=== PATIENT | female | born 1955 | race African-American/Black ===

== ENCOUNTER 2018-02-24 06:32 | Emergency (ER) | payer SELFPAY ==
[~2018-02-24] VITALS: Ht 154.9 cm; Wt 99.3 kg
[~2018-02-24 06:32] MED LIST: ALBUAER3 IN; CYCL7.5T15 PO; DIPH-506 OR; DOCU-94 PO; HYDR-4072 PO; LISI-646 PO; LOSA100T27 PO; METF-489 PO; OMEP20TA44 PO; TRAZ-181 PO
[2018-02-24 06:51] VITALS: BP 131/75
[2018-02-24] MEDS ORDERED: KETOROLAC TROMETH 60MG/2ML VIAL IM ONE (07:45)
== END 2018-02-24 08:05 | disposition home or self-care (01) ==
LOC: ER 06:32
DX: S39.012A Strain of muscle, fascia and tendon of lower back, initial encounter (principal); R51 Headache; J45.909 Unspecified asthma, uncomplicated; E11.9 Type 2 diabetes mellitus without complications; I10 Essential (primary) hypertension; V43.62XA Car passenger injured in collision with other type car in traffic accident, initial encounter; Y93.89 Activity, other specified; Y92.488 Other paved roadways as the place of occurrence of the external cause; Y99.8 Other external cause status
CPT/HCPCS: 70450; 72131; 96372; 99284; J1885

== ENCOUNTER 2018-08-09 07:31 | Emergency (ER) | payer OTHER ==
[~2018-08-09] VITALS: Ht 154.9 cm; Wt 99.8 kg
[~2018-08-09 07:31] MED LIST changes: +LOSA-49 PO; -LOSA100T27 PO
[2018-08-09 08:14] VITALS: BP 122/84
== END 2018-08-09 09:17 | disposition home or self-care (01) ==
LOC: ER 07:31
DX: M75.92 Shoulder lesion, unspecified, left shoulder (principal); J45.909 Unspecified asthma, uncomplicated; E11.9 Type 2 diabetes mellitus without complications; I10 Essential (primary) hypertension; G89.29 Other chronic pain; M54.5 Low back pain; Z79.891 Long term (current) use of opiate analgesic; Z79.899 Other long term (current) drug therapy
CPT/HCPCS: 73030

== ENCOUNTER 2018-12-11 05:55 | Emergency (ER) | payer OTHER ==
[~2018-12-11] VITALS: Ht 154.9 cm; Wt 101.2 kg
[2018-12-11 07:35] LABS: Basophils # (auto) 0.1 uL; Basophils % (auto) 0.8 % (0.0-2.0); Eosinophils # (auto) 0.2 uL; Eosinophils % (auto) 1.9 % (0.0-7.0); Hematocrit 39.6 % (36.0-46.0); Hemoglobin 12.7 g/dL (12.2-16.2); Lymphocytes # (auto) 2.1 uL; Mean Corpuscular Hemoglobin 28.2 pg (28.0-32.0); Monocytes # (auto) 0.8 uL; Neutrophils # (auto) 7.2 uL; Neutrophils % (auto) 69.3 % (37.0-80.0); Platelet Count (auto) 189 10^3/uL (140-450); Red Cell Distribution Width 16.3 % (11.8-14.3); White Blood Cell 10.4 10^3/uL (4.4-10.8)
[2018-12-11 08:02] LABS: Albumin 3.2 g/dL (3.4-5.0); Anion Gap 7 (5-15); Aspartate Aminotransferase 17 U/L (15-37); BUN/Creatinine Ratio 15.4; Blood Urea Nitrogen 10 mg/dL (7-18); Calcium 7.9 mg/dL (8.5-10.1); Carbon Dioxide 27 mmol/L (21-32); Chloride 109 mmol/L (98-107); GFR African American 118 mL/min; GFR Non-African American 97 mL/min; Glucose 104 mg/dL (74-106); Potassium 3.6 mmol/L (3.5-5.1); Sodium 143 mmol/L (136-145)
[2018-12-11 08:07] LABS: Alanine Aminotransferase 24 U/L (13-56); Alkaline Phosphatase 88 U/L (45-117); Bilirubin, Total 0.1 mg/dL (0.2-1.0)
[2018-12-11] MEDS ORDERED: HYDROcodone-ACET 5/325MG TAB PO ONE (09:15)
[2018-12-11] MEDS ORDERED: ACETAMINOPHEN 325 MG TAB PO ONE (09:30)
[2018-12-11 09:48] LABS: Urine Bacteria NONE SEEN /hpf (None Seen); Urine Blood Negative /uL (Negative); Urine Mucus FEW (None Seen); Urine Specific Gravity 1.029 (1.001-1.035); Urine WBC <1 /hpf (0 - 5)
[2018-12-11 11:00] VITALS: BP 138/80
== END 2018-12-11 11:08 | disposition home or self-care (01) ==
LOC: ER 05:55
DX: M50.323 Other cervical disc degeneration at C6-C7 level (principal); I10 Essential (primary) hypertension; M79.602 Pain in left arm
CPT/HCPCS: 36415; 72040; 73030; 80053; 81001; 84484; 85025; 93005

== ENCOUNTER 2019-05-08 13:14 | Emergency (ER) | payer OTHER ==
[~2019-05-08] VITALS: Ht 154.9 cm; Wt 96.2 kg
[~2019-05-08 13:14] MED LIST changes: +LOSA-39 PO; -LOSA-49 PO
[2019-05-08 15:00] VITALS: BP 131/77
[2019-05-08] MEDS ORDERED: HYDROcodone-ACET 5/325MG TAB PO ONE (15:00)
== END 2019-05-08 15:43 | disposition home or self-care (01) ==
LOC: EDBD 13:14 → ER 13:16
DX: S40.012A Contusion of left shoulder, initial encounter (principal); S70.02XA Contusion of left hip, initial encounter; J44.9 Chronic obstructive pulmonary disease, unspecified; E11.9 Type 2 diabetes mellitus without complications; K21.9 Gastro-esophageal reflux disease without esophagitis; Z79.899 Other long term (current) drug therapy; W18.09XA Striking against other object with subsequent fall, initial encounter; Y93.89 Activity, other specified; Y92.59 Other trade areas as the place of occurrence of the external cause; Y99.8 Other external cause status
CPT/HCPCS: 73030; 73502

== ENCOUNTER 2019-07-20 08:32 | Emergency (ER) | payer OTHER ==
[~2019-07-20] VITALS: Ht 154.9 cm; Wt 94.8 kg
[2019-07-20 08:40] VITALS: BP 164/90
[2019-07-20] MEDS ORDERED: ALBUTEROL SULF 2.5 MG/0.5ML(0.5%) NEB SOLN NEB ONE (09:30)
[2019-07-20] MEDS ORDERED: IPRATROPIUM BROM 0.5 MG/2.5ML INH SOL NEB ONE (09:30)
== END 2019-07-20 10:24 | disposition home or self-care (01) ==
LOC: ER 08:32
DX: J45.909 Unspecified asthma, uncomplicated (principal); E11.9 Type 2 diabetes mellitus without complications; K21.9 Gastro-esophageal reflux disease without esophagitis; I10 Essential (primary) hypertension
CPT/HCPCS: 71046; 94640; 99283; J7611; J7644

== ENCOUNTER 2022-12-28 07:36 | Emergency (ER) | payer OTHER ==
[~2022-12-28] VITALS: Ht 152.4 cm; Wt 93.3 kg
[~2022-12-28 07:36] MED LIST changes: +CYCL-838 PO; -CYCL7.5T15 PO; -DIPH-506 OR; +DIPH-562 OR; -LISI-646 PO; +LISI20TA56 PO; -LOSA-39 PO; +LOSA100T58 PO
[2022-12-28] MEDS ORDERED: GABAPENTIN 300 MG CAP PO ONE (08:15)
[2022-12-28 08:41] VITALS: BP 138/62
[2022-12-28] MEDS ORDERED: PERCOT PO (09:54)
== END 2022-12-28 10:05 | disposition home or self-care (01) ==
LOC: ER 07:36
DX: M12.811 Other specific arthropathies, not elsewhere classified, right shoulder (principal); M25.511 Pain in right shoulder; J44.9 Chronic obstructive pulmonary disease, unspecified; I10 Essential (primary) hypertension; E11.9 Type 2 diabetes mellitus without complications; K21.9 Gastro-esophageal reflux disease without esophagitis; E66.01 Morbid (severe) obesity due to excess calories; Z79.4 Long term (current) use of insulin; Z79.1 Long term (current) use of non-steroidal anti-inflammatories (NSAID); Z79.899 Other long term (current) drug therapy; Z68.41 Body mass index [BMI] 40.0-44.9, adult
CPT/HCPCS: 72040

== ENCOUNTER 2023-02-24 15:35 | Emergency (ER) | payer OTHER ==
[~2023-02-24] VITALS: Ht 180.3 cm; Wt 111.0 kg
[~2023-02-24 15:35] MED LIST changes: +PERCOT PO
[2023-02-24] MEDS ORDERED: EPINEPHrine HCL 1 MG/1 ML AMP IM ONE (16:15)
[2023-02-24] MEDS ORDERED: SODIUM CHLORIDE 0.9% 500 ML IV ONE (16:15)
[2023-02-24] MEDS ORDERED: FAMOTIDINE (10MG/ML) 2ML VL IV ONE (16:15)
[2023-02-24] MEDS ORDERED: DIPH25CA66 PO (17:18)
[2023-02-24] MEDS ORDERED: FAMO20TA10 PO (17:18)
[2023-02-24 17:30] VITALS: BP 138/67; PULSE 81; RESP 19; TEMP 98.4; O2SAT 95
== END 2023-02-24 17:37 | disposition home or self-care (01) ==
LOC: ER 15:35
DX: T78.40XA Allergy, unspecified, initial encounter (principal); J44.9 Chronic obstructive pulmonary disease, unspecified; I10 Essential (primary) hypertension; E11.9 Type 2 diabetes mellitus without complications; K21.9 Gastro-esophageal reflux disease without esophagitis; Z79.899 Other long term (current) drug therapy; Y92.89 Other specified places as the place of occurrence of the external cause
CPT/HCPCS: 96361; 96372; 96374; 99284; J0171; J3490; J7040

== ENCOUNTER 2023-05-20 13:08 | Emergency (ER) | payer OTHER ==
[~2023-05-20] VITALS: Ht 154.9 cm; Wt 88.1 kg
[~2023-05-20 13:08] MED LIST changes: +DIPH25CA66 PO; +FAMO20TA10 PO
[2023-05-20] MEDS ORDERED: diphenhdrAMINE HCL 12.5 MG/5 ML UD PO ONE (13:30)
[2023-05-20] MEDS ORDERED: FAMOTIDINE 20 MG TAB PO ONE (15:00)
[2023-05-20] MEDS ORDERED: diphenhdrAMINE HCL 50 MG/1 ML VL IM ONE (15:00)
[2023-05-20] MEDS ORDERED: DexAMETHasone SOD PHOS 10MG/1ML VIAL INJ IM ONE (15:00)
[2023-05-20 15:11] VITALS: PULSE 76; RESP 16; O2SAT 95
[2023-05-20 15:16] VITALS: BP 109/73; PULSE 76; RESP 16; TEMP 98.1; O2SAT 95
[2023-05-20] MEDS ORDERED: PRED20TA2 PO (17:52)
[2023-05-20] MEDS ORDERED: DIPH25CA66 PO (17:52)
[2023-05-20] MEDS ORDERED: FAMO20TA10 GT (17:52)
== END 2023-05-20 17:47 | disposition home or self-care (01) ==
LOC: ER 13:08
DX: T78.40XA Allergy, unspecified, initial encounter (principal); I10 Essential (primary) hypertension; J45.909 Unspecified asthma, uncomplicated; E78.5 Hyperlipidemia, unspecified; Z79.899 Other long term (current) drug therapy; Y92.89 Other specified places as the place of occurrence of the external cause
CPT/HCPCS: 82962; 96372; 99284; J1100; J1200

== ENCOUNTER 2023-07-29 10:32 | Emergency (ER) | payer OTHER ==
[~2023-07-29] VITALS: Ht 154.9 cm; Wt 89.0 kg
[~2023-07-29 10:32] MED LIST changes: +FAMO20TA10 GT; +PRED20TA2 PO
[2023-07-29 11:48] LABS: Basophils # (auto) 0.1 10 ^3/uL (0-0.2); Basophils % (auto) 0.5 % (0.0-2.0); Eosinophils # (auto) 0.1 10 ^3/uL (0-0.8); Eosinophils % (auto) 1.4 % (0.0-7.0); Hematocrit 46.3 % (36.0-46.0); Hemoglobin 15.1 g/dL (12.2-16.2); Lymphocytes # (auto) 2.6 10 ^3/uL (0.4-5.4); Lymphocytes % (auto) 25.7 % (10.0-50.0); Mean Corpuscular Hemoglobin 28.5 pg (28.0-32.0); Mean Corpuscular Hgb Conc. 32.7 g/dL (32.0-36.0); Mean Corpuscular Volume 87.3 fL (80.0-100.0); Monocytes # (auto) 0.8 10 ^3/uL (0-1.3); Monocytes % (auto) 7.9 % (0.0-12.0); Neutrophils # (auto) 6.4 10 ^3/uL (1.6-8.6); Neutrophils % (auto) 64.5 % (37.0-80.0); Nucleated Red Blood Cells % 0.1 %; Red Blood Cells 5.31 10^6/uL (4.0-5.20); Red Cell Distribution Width 15.7 % (11.8-14.3)
[2023-07-29 12:03] LABS: INR 0.98 (0.9-1.15); Partial Thromboplastin Time 29.3 SEC (24.5-34.5); Prothrombin Time 10.3 sec (9.3-11.8)
[2023-07-29 12:06] LABS: Alanine Aminotransferase 37 U/L (7-40); Albumin 4.8 g/dL (3.2-4.8); Alkaline Phosphatase 99 U/L (46-116); Anion Gap 6 (5-15); Aspartate Aminotransferase 23 U/L (13-40); BUN/Creatinine Ratio 13.6 (10.0-20.0); Blood Urea Nitrogen 11 mg/dL (9-23); Carbon Dioxide 31 mmol/L (20-30); Chloride 103 mmol/L (98-107); Glucose 104 mg/dL (74-106); Potassium 3.7 mmol/L (3.5-5.1); Sodium 140 mmol/L (136-145)
[2023-07-29 12:07] LABS: Bilirubin, Total 0.4 mg/dL (0.2-1.0); Total Protein 7.5 g/dL (5.7-8.2)
[2023-07-29 13:12] VITALS: BP 134/91; PULSE 85; RESP 18; TEMP 98.1; O2SAT 96
== END 2023-07-29 13:14 | disposition home or self-care (01) ==
LOC: ER 10:32
DX: R55 Syncope and collapse (principal); R42 Dizziness and giddiness; J44.9 Chronic obstructive pulmonary disease, unspecified; E11.9 Type 2 diabetes mellitus without complications; K21.9 Gastro-esophageal reflux disease without esophagitis; I10 Essential (primary) hypertension
CPT/HCPCS: 36415; 70450; 70486; 71045; 80053; 83880; 84484; 85025; 85610; 85730; 93005

== ENCOUNTER 2024-09-20 17:11 | Emergency (ER) | payer OTHER, MEDICAID ==
[~2024-09-20] VITALS: Ht 154.9 cm; Wt 90.1 kg
[~2024-09-20 17:11] MED LIST changes: +CETI10TA2 PO; -CYCL-838 PO; +CYCL-839 PO; +DICL500C76 TOP; -DIPH-562 OR; -DIPH25CA66 PO; +EMPA1TAB PO; -FAMO20TA10 GT; +FLUT1AER3 IN; +FURO20TA3 PO; -LISI20TA56 PO; +LORA-622 PO; +LORA10CA12 PO; -LOSA100T58 PO; -METF-489 PO; +MONT-8 OR; -OMEP20TA44 PO; +POTA-36 PO; -PRED20TA2 PO; +ROSU10TA16 PO; +SACU1TAB PO; +SEMA2INJ3 SC; +TIZA4CAP PO
[2024-09-20 17:23] VITALS: BP 155/83; PULSE 79; RESP 16; TEMP 97.8; O2SAT 100
--- NOTE | 2024-09-20 19:51 | DVH ---
EXAM: XR Left Knee, 3 Views CLINICAL INDICATION: injury/pain TECHNIQUE: Three views of the left knee. COMPARISON: None FINDINGS: BONES/JOINTS: Unremarkable. No acute fracture. No dislocation. SOFT TISSUES: Unremarkable. OTHER FINDINGS: . None. IMPRESSION: No acute fracture.
[2024-09-20] MEDS: KETOROLAC TROMETH 60MG/2ML VIAL IM ONE (19:54)
[2024-09-20] MEDS: HYDROcodone-ACET 5/325MG TAB PO ONE (19:54)
--- NOTE | 2024-09-20 20:17 | ED.PDOC ---
Back pain HPI HPI Comments 69-YEAR-OLD FEMALE PRESENTS TO THE ED CHIEF COMPLAINT LEFT LOWER LEG PAIN. PATIENT STATES SHE TWISTED HER LEFT LEG AT THE KNEE, SINCE HAS POSTERIOR KNEE PAIN SWELLING. 8/10 ON PAIN SCALE THROBBING IN NATURE NONRADIATING HAS NOT TRIED ANY [id number] RELIEF MEASURES CURRENTLY IN A WHEELCHAIR STATES INCREASED PAIN WITH WEIGHT-BEARING. DENIES ANY OTHER KNOWN INJURY NUMBNESS OR WEAKNESS. Chief Complaint: Lower Extremity Time Seen by MD: 18:28 Primary Care Provider: Madelin Barkley Notes: Nurses Notes, Medications, Allergies Allergies: Coded Allergies: NO KNOWN ALLERGIES (Unverified , 12/11/18) Home Meds Active Scripts Famotidine (PEPCID TABLET) 20 Mg Tb, 1 TAB PO BID for 10 Days, #20 TAB 5 Refills Prov:CRISTAL MORA ENVIRONMENTAL SOLUTIONS ENGINEER 02/24/23 Oxycodone W/ Acetaminophen (Percocet 5/325MG) 1 Tab Tb, 1 TAB PO TID, #20 TAB Prov:KIKI GUALLPA PAC 12/28/22 Reported Medications Potassium Chloride (POTASSIUM CHLORIDE CR) 10 Meq Tb, 20 MEQ PO BID, TAB 11/19/23 Furosemide (Furosemide) 20 Mg Tab, 20 MG PO BIDD for 30 Days, MG 11/19/23 Sacubitril-Valsartan (Entresto 24-26 mg) 1 Tab Tab, 1 TAB PO, TAB 11/19/23 Dicloxacillin Sodium (Dicloxacillin Sodium) 500 Mg Cap, 1 GEL TOP, #28 CAP 11/19/23 Cyclobenzaprine Hcl (Cyclobenzaprine Hcl) 10 Mg Tab, 10 MG PO Q8HR for 30 Days, MG 11/19/23 Loratadine (Claritin) 10 Mg Tab, 10 MG PO, TAB 11/19/23 Trazodone HCl (Trazodone Hydrochloride) 50 Mg Tab, 50 MG PO, TAB 11/19/23 Rosuvastatin Calcium (Crestor) 10 Mg Tab, 10 MG PO, TAB 11/19/23 Semaglutide (Ozempic) 2 Mg/3 Ml Inj, 0.5 MG SC, INJ 11/19/23 Empagliflozin (Jardiance) 10 Mg Tab, 10 MG PO, TAB 11/19/23 Pjzfmhkeolt-Atbsmprcbbid-Gjety (Trelegy Ellipta 100-62.5-25 Mcg/INH) 1 Aer Aer, 1 AER IN, AER 11/19/23 Loratadine (Loratadine) 10 Mg Cap, 10 MG PO, CAP 11/19/23 Montelukast Sodium (MONTELUKAST SODIUM) 10 Mg Tab, 10 MG OR, TAB 11/19/23 Cetirizine Hcl (Kls Aller-Robyn) 10 Mg Tab, 10 MG PO, TAB 11/19/23 Tizanidine Hydrochloride (Zanaflex) 4 Mg Cap, 2 MG PO, CAP 11/19/23 Albuterol Sulfate (VENTOLIN MDI) 90 Mcg Ih, 90 MCG IN 11/01/17 Docusate Sodium (Colace) 100 Mg Cap, 100 MG PO, CAP 11/01/17 Hydrocodone-Acetaminophen (Hydrocodone/Acetaminophen 10-325 mg) 1 Tab Tab, 1 TAB PO, TAB 11/01/17 Mode of Arrival: Ambulatory Past Medical History PAST MEDICAL HISTORY: Asthma, COPD, DM, GERD, HTN Surgical History: Hysterectomy, Tonsillectomy 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 History: Denies all 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 Hx Family History Family History: No family hx of DM, No family hx of Heart zurdo, No family hx of HTN Social History Smoker: Non-Smoker Alcohol: Denies ETOH Use Drugs: Denies Drug Use Lives In: Home Constitutional: denies: chills, diaphoresis, fatigue, fever, malaise, sweats, weakness, others EENTM: denies: blurred vision, double vision, ear bleeding, ear discharge, ear drainage, ear pain, ear ringing, eye pain, eye redness, hearing loss, mouth pain, mouth swelling, nasal discharge, nose bleeding, nose congestion, nose pain, photophobia, tearing, throat pain, throat swelling, voice changes, others Respiratory: denies: cough, hemoptysis, orthopnea, SOB at rest, shortness of breath, SOB with excertion, stridor, wheezing, others Cardiovascular: denies: chest pain, dizzy spells, diaphoresis, Dyspnea on exertion, edema, irregular heart beat, left arm pain, lightheadedness, palpitations, PND, syncope, others Gastrointestinal: denies: abdomen distended, abdominal pain, blood streaked bowels, constipated, diarrhea, dysphagia, difficulty swallowing, hematemesis, melena, nausea, poor appetite, poor fluid intake, rectal bleeding, rectal pain, vomiting, others Genitourinary: denies: abnormal vagina bleeding, burning, dyspareunia, dysuria, flank pain, frequency, hematuria, incontinence, pain, , vagina discharge, urgency, others Neurological: denies: dizziness, fainting, headache, left sided numbness, left sided weakness, numbness, paresthesia, pre-existing deficit, right sided numbness, right sided weakness, seizure, speech problems, tingling, tremors, weakness, others Musculoskeletal: reports: others (LEFT KNEE PAIN/INJURY); denies: back pain, gout, joint pain, joint swelling, muscle pain, muscle stiffness, neck pain Integumetry: denies: bruises, change in color, change in hair/nails, dryness, laceration, lesions, lumps, rash, wounds, others Allergic/Immunocompromised: denies: Difficulty Healing, Frequent Infections, Hives, Itching, others Hematologic/Lymphatic: denies: anemia, blood clots, easy bleeding, easy bruising, swollen glands, others Endocrine: denies: excessive hunger, excessive sweating, excessive thirst, excessive urination, flushing, intolerance to cold, intolerance to heat, unexplained weight gain, unexplained weight loss, others Psychiatric: denies: anxiety, bipolar disorder, depression, hopeless, panic disorder, schizophrenia, sleepless, suicidal, others Physical Exam General Appearance: No Apparent Distress, Normal HEENT: Normal ENT Inspection, Pharynx Normal, TMs Normal Neck: Full Range of Motion, Non-Tender Respiratory: Chest Non-Tender, Lungs Clear, No Accessory Muscle Use, No Respiratory Distress, Normal Breath Sounds Cardiovascular: No Edema, No JVD, No Murmur, No Gallop, Normal Peripheral Pulses, Regular Rate/Rhythm Breast Exam: Deferred Gastrointestinal: No Organomegaly, Non Tender, No Pulsatile Mass, Normal Bowel Sounds, Soft Genitalia: Deferred Pelvic: Deferred Rectal: Deferred Extremities: Normal capillary refill, Normal inspection, Normal range of motion , Non-tender, No pedal edema Musculoskeletal : Location: Left Extremity Location: Knee (NEGATIVE CHRISSY AND DRAWER TEST. TENDERNESS PALPATED POSTERIOR KNEE WITH TRACE SWELLING. POSITIVE POPLITEAL PULSE STRENGTH SENSORY MOTION INTACT) Apperance: Normal Neurologic: Alert, wire stitcher operator II-XII nml as Tested, No Motor Deficits, Normal Affect, Normal Mood, No Sensory Deficits Cerebellar Function: Normal Reflexes: Normal Skin: Dry, Normal Color, Warm Lymphatic: No Adenopathy Was a procedure done? Was a procedure done?: No Back Pain Differential Dx Differential Diagnosis: Fracture, Musculoskeletal Pain X-Ray, Labs, Meds, VS Vital Signs Date Time Temp Pulse Resp B/P (MAP) Pulse Ox O2 Delivery O2 Flow Rate FiO2 09/20/24 17:23 97.8 79 16 155/83 (107) 100 97.8 09/20/24 17:23 97.8 79 16 155/83 (107) 100 97.8 Current Medications Medications (Trade) Dose Ordered Sig/Dominique Route Start Time Stop Time Status Last Admin Acetaminophen/ Hydrocodone Bitart ([place] 5/325MG Tab) 1 tab ONCE ONCE PO 09/20/24 19:15 09/20/24 19:16 DC 09/20/24 19:54 Ketorolac Tromethamine (Toradol Injection) 60 mg ONCE ONCE IM 09/20/24 19:15 09/20/24 19:16 DC 09/20/24 19:54 X-Ray, Labs, Meds, VS Comment LEFT KNEE X-RAY SHOWS NO ACUTE FRACTURES, OSSEOUS LESIONS, OR DISLOCATIONS. LIKELY MUSCLE STRAIN. PATIENT WAS GIVEN TORADOL 60 MG IM AND NORCO 5 MG P.O. REPORTS IMPROVEMENT IN PAIN AND FUNCTION REQUESTING DISCHARGE AT THIS TIME. ADVISED ON RICE. ADVISED TO FOLLOW UP WITH HER PCP IN 2-3 DAYS NECESSARY CONSIDER FURTHER IMAGING SUCH MRI IF SYMPTOMS PERSIST. [id number] TYLENOL OR MOTRIN NEEDED FOR THE PAIN PER LABELED DOSING INSTRUCTIONS. ER RETURN PRECAUTIONS GIVEN PATIENT INDICATES UNDERSTANDING AGREES WITH DISCHARGE PLAN OF CARE. Time of 1ST Reevaluation: 20:27 Reevaluation 1ST: Improved Patient Education/Counseling: Diagnosis, Treatment, Prognosis, Need For Follow Up Family Education/Counseling: No Family Present Departure 1 Departure Time of Disposition: 20:15 Impression: Primary Impression: Strain of knee and leg, left Qualified Codes: S86.912A - Strain of unspecified muscle(s) and tendon(s) at lower leg level, left leg, initial encounter Disposition: HOME / SELF CARE / HOMELESS Condition: Stable Discharged With: Other (DAUGHTER) Critical Care Note Critical Care Time?: No Stability Stability form required: SEA Matthew Sep 20, 2024 20:16
== END 2024-09-20 20:25 | disposition home or self-care (01) ==
LOC: ER 17:11
DX: S86.912A Strain of unspecified muscle(s) and tendon(s) at lower leg level, left leg, initial encounter (principal); J44.89 Other specified chronic obstructive pulmonary disease; I10 Essential (primary) hypertension; E11.9 Type 2 diabetes mellitus without complications; Z90.710 Acquired absence of both cervix and uterus; Z79.899 Other long term (current) drug therapy; K21.9 Gastro-esophageal reflux disease without esophagitis; X50.1XXA Overexertion from prolonged static or awkward postures, initial encounter; Y93.89 Activity, other specified; Y92.89 Other specified places as the place of occurrence of the external cause; Y99.8 Other external cause status
CPT/HCPCS: 73562; 96372; 99283; J1885

== ENCOUNTER 2024-09-28 12:27 | Inpatient (IN) | payer OTHER, MEDICAID ==
[~2024-09-28] VITALS: Ht 154.9 cm; Wt 93.1 kg
[2024-09-28 12:58] LABS: Basophils # (auto) 0.1 10 ^3/uL (0-0.2); Basophils % (auto) 0.5 % (0.0-2.0); Eosinophils # (auto) 0.1 10 ^3/uL (0-0.8); Hematocrit 44.9 % (36.0-46.0); Hemoglobin 14.8 g/dL (12.2-16.2); Lymphocytes # (auto) 2.5 10 ^3/uL (0.4-5.4); Lymphocytes % (auto) 24.7 % (10.0-50.0); Mean Corpuscular Hemoglobin 28.9 pg (28.0-32.0); Mean Corpuscular Volume 87.7 fL (80.0-100.0); Monocytes # (auto) 0.9 10 ^3/uL (0-1.3); Monocytes % (auto) 8.9 % (0.0-12.0); Neutrophils # (auto) 6.5 10 ^3/uL (1.6-8.6); Neutrophils % (auto) 64.9 % (37.0-80.0); Nucleated Red Blood Cells % 0.1 %; Platelet Count (auto) 234 10^3/uL (140-450); Red Blood Cells 5.12 10^6/uL (4.0-5.20); Red Cell Distribution Width 15.2 % (11.8-14.3); White Blood Cell 9.9 10^3/uL (4.4-10.8)
[2024-09-28 13:01] VITALS: PULSE 90; RESP 18; O2SAT 95
--- NOTE | 2024-09-28 13:10 | ED.PDOC ---
HPI Comments HPI: HPI: 69y F who presents to the ED for chief complaint of chest pain. - pt states she has been having chest pain for the past 3 days. - pt states the pain is sharp, intermittent, rating the pain 8/10, with pain radiating to the L arm, with no noted exacerbating or relieving factors - pt has associated symptoms of shortness of breath and dizziness but otherwise diaphoresis, palpitations, headache, nausea, vomiting, fever, cough, chills, dysuria, or hematuria - pt in the ED, has otherwise stable vitals with 02 sat of 95% on room air, BP of 112/86, with all other vitals in normal range - pt denies any other symptoms at this time Past Medical History: CHF, COPD, DM, asthma, HTN, Past Surgical History: Hysterectomy, Tonsillectomy medications: Lasix, ozempic allergies: nkda Social History: denies tobacco use, denies ETOH use, denies drug use REVIEW OF SYSTEMS: CONSTITUTIONAL: Denies acute: fever, diaphoresis, chills, generalized weakness. HEAD: Denies acute: headache, photophobia Eyes: Denies acute: Double vision, vision loss, eye pain, eye discharge. EARS: Denies acute: tinnitus, hearing loss, ear discharge, ear pain, THROAT: Denies acute: sore throat, swelling, difficulty swallowing , pain with swallowing, change in voice. NECK: Denies acute: neck pain, neck swelling, stiff neck. HEART: Denies acute : palpitations, LUNGS: Denies acute: wheezing, cough, hemoptysis ABDOMEN: Denies acute: abdominal pain, Nausea, Vomiting, diarrhea, melena , hematemesis, hematochezia SKIN: Denies acute: rash, redness, lesions, itchiness. EXTREMITIES: Denies acute: calf pain, weakness, Denies acute: Low back pain. Neuro: Denies acute: focal neurological deficit, motor or sensory focal neurological deficit, tremors, seizure like activity, confusion, change in mental status, loss of bowel or bladder function, cauda equina like symptoms. : Denies acute: dysuria, hematuria, flank pain, increase in urinary frequency. PSYCH: Denies acute: hallucination, suicidal ideation, homicidal ideation. FEMALE: Denies acute: abnormal vaginal bleeding, foul odor, unusual discharge. PHYSICAL EXAM: General: no acute distress, awake and alert. Head: normocephalic, atraumatic. Neck: supple, trachea is midline, no swelling. Throat: Normal phonation. Eyes:, no erythema, no purulent discharge, no proptosis, no icterus. Heart: regular rate, regular rhythm, no significant murmur appreciated. Lungs: no apparent respiratory distress, Able to speak in full sentences. No wheezing, no rhonchi, no crackles. No stridors Clear to auscultation bilaterally. Abdomen: non tender to palpation, non distended, soft, no guarding, no rebound, + bowel sounds. Obese Neuro: Awake, Alert, oriented to name, self, situation, follows commands GCS=15. Speech is normal. Skin: no petechia, no purpura, no cyanosis, non-pale, not jaundice. Lower extremities: --no - Pitting edema no deformity, no focal swelling, no calf TTP. Makes eye contact. moves all four extremities. Face: no apparent facial droop. ED COURSE: Chief Complaint: Chest Pain Time Seen by MD: 12:29 Primary Care Provider: Madelin Reviewed Notes: Nurses Notes, Medications, Allergies Allergies: Coded Allergies: NO KNOWN ALLERGIES (Unverified , 12/11/18) Home Meds Active Scripts Famotidine (PEPCID TABLET) 20 Mg Tb, 1 TAB PO BID for 10 Days, #20 TAB 5 Refills Prov:CRISTAL MORA ELEMENTARY INSTRUCTIONAL COACH 02/24/23 Oxycodone W/ Acetaminophen (Percocet 5/325MG) 1 Tab Tb, 1 TAB PO TID, #20 TAB Prov:KIKI GUALLPA PAC 12/28/22 Reported Medications Tryoecjwflw-Hedajxmnmtpq-Qwlew (Trelegy Ellipta 100-62.5-25 Mcg/INH) 1 Aer Aer, 1 AER IN DAILY, AER 09/28/24 Semaglutide (Ozempic) 2 Mg/3 Ml Inj, 2 MG SC QWEEKLY, INJ 09/28/24 Sacubitril-Valsartan (Entresto 24-26 mg) 1 Tab Tab, 1 TAB PO BID, TAB 09/28/24 Hydrocodone-Acetaminophen (Hydrocodone Bitartrate/AC 10-325 mg) 1 Tab Tab, 1 TAB PO QIDP, TAB 09/28/24 Famotidine (Famotidine) 20 Mg Tab, 40 MG PO HS for 30 Days, MG 09/28/24 Donepezil Hydrochloride (DONEPEZIL HCL) 5 Mg Tab, 5 MG PO QPM for 30 Days, MG 09/28/24 Diclofenac Epolamine (Flector) 1.3 % Dis, 1 % TOP HS, DIS 09/28/24 Chlorthalidone (Chlorthalidone) 25 Mg Tab, 12.5 MG PO DAILY, TAB 09/28/24 Potassium Chloride (POTASSIUM CHLORIDE CR) 10 Meq Tb, 20 MEQ PO DAILY, TAB 11/19/23 Furosemide (Furosemide) 20 Mg Tab, 20 MG PO BIDD for 30 Days, MG 11/19/23 Dicloxacillin Sodium (Dicloxacillin Sodium) 500 Mg Cap, 1 GEL TOP, #28 CAP 11/19/23 Cyclobenzaprine Hcl (Cyclobenzaprine Hcl) 10 Mg Tab, 10 MG PO HS for 30 Days, MG 11/19/23 Loratadine (Claritin) 10 Mg Tab, 10 MG PO DAILY, TAB 11/19/23 Trazodone HCl (Trazodone Hydrochloride) 50 Mg Tab, 50 MG PO HS, TAB 11/19/23 Rosuvastatin Calcium (Crestor) 10 Mg Tab, 10 MG PO DAILY, TAB 11/19/23 Empagliflozin (Jardiance) 10 Mg Tab, 10 MG PO, TAB 11/19/23 Montelukast Sodium (MONTELUKAST SODIUM) 10 Mg Tab, 10 MG OR, TAB 11/19/23 Cetirizine Hcl (Kls Aller-Robyn) 10 Mg Tab, 10 MG PO, TAB 11/19/23 Tizanidine Hydrochloride (Zanaflex) 4 Mg Cap, 2 MG PO, CAP 11/19/23 Albuterol Sulfate (VENTOLIN MDI) 90 Mcg Ih, 90 MCG IN BIDP 11/01/17 Docusate Sodium (Colace) 100 Mg Cap, 100 MG PO BID, CAP 11/01/17 Discontinued Reported Medications Sacubitril-Valsartan (Entresto 24-26 mg) 1 Tab Tab, 1 TAB PO, TAB 11/19/23 Semaglutide (Ozempic) 2 Mg/3 Ml Inj, 0.5 MG SC, INJ 11/19/23 Jlrejiubmjz-Adbvmlammzha-Wegsg (Trelegy Ellipta 100-62.5-25 Mcg/INH) 1 Aer Aer, 1 AER IN, AER 11/19/23 Hydrocodone-Acetaminophen (Hydrocodone/Acetaminophen 10-325 mg) 1 Tab Tab, 1 TAB PO, TAB 11/01/17 Information Source: Patient Mode of Arrival: Ambulatory Past Medical History PAST MEDICAL HISTORY: Asthma, COPD, DM, GERD, HTN Surgical History: Hysterectomy, Tonsillectomy 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 Was a procedure done?: No CP Differential Dx Differential Diagnosis: N/A Differential Diagnosis: Other (Ddx include but not limitied to gastritis, musculoskeletal pain, radiculopathy, atypical chest pain, dissection, aneurysm, ACS, unstable angina, hiatal hernia, GERD, anxiety, costochondritis, PE, pneumothroax, neoplasm, cardiac ischemia, drug abuse, anemia.) X-Ray, Labs, Meds, VS Vital Signs Date Time Temp Pulse Resp B/P (MAP) Pulse Ox O2 Delivery O2 Flow Rate FiO2 09/28/24 14:45 97.9 81 14 117/64 (81) 95 97.9 09/28/24 14:02 122/65 09/28/24 13:33 86 09/28/24 13:01 90 18 95 Room Air* 0 21 09/28/24 12:58 98.4 90 18 112/86 (95) 95 98.4 09/28/24 12:41 97.8 96 18 104/68 (80) 92 97.8 Lab Test 09/28/24 13:37 09/28/24 12:42 09/28/24 12:41 Range/Units Troponin I High Sensitivity < 3 L < 3 L </=34 ng/L White Blood Count 9.9 4.4-10.8 10^3/uL Red Blood Count 5.12 4.0-5.20 10^6/uL Hemoglobin 14.8 12.2-16.2 g/dL Hematocrit 44.9 36.0-46.0 % Mean Corpuscular Volume 87.7 80.0-100.0 fL Mean Corpuscular Hemoglobin 28.9 28.0-32.0 pg Mean Corpuscular Hemoglobin Concent 33.0 32.0-36.0 g/dL Red Cell Distribution Width 15.2 H 11.8-14.3 % Platelet Count 234 140-450 10^3/uL Mean Platelet Volume 8.2 6.9-10.8 fL Neutrophils (%) (Auto) 64.9 37.0-80.0 % Lymphocytes (%) (Auto) 24.7 10.0-50.0 % Monocytes (%) (Auto) 8.9 0.0-12.0 % Eosinophils (%) (Auto) 1.0 0.0-7.0 % Basophils (%) (Auto) 0.5 0.0-2.0 % Neutrophils # (Auto) 6.5 1.6-8.6 10 ^3/uL Lymphocytes # (Auto) 2.5 0.4-5.4 10 ^3/uL Monocytes # (Auto) 0.9 0-1.3 10 ^3/uL Eosinophils # (Auto) 0.1 0-0.8 10 ^3/uL Basophils # (Auto) 0.1 0-0.2 10 ^3/uL Nucleated Red Blood Cells 0.1 % Sodium Level 143 136-145 mmol/L Potassium Level 3.9 3.5-5.1 mmol/L Chloride Level 103 98-107 mmol/L Carbon Dioxide Level 31 20-31 mmol/L Anion Gap 9 5-15 Blood Urea Nitrogen 14 9-23 mg/dL Creatinine 0.71 0.550-1.02 mg/dL Glomerular Filtration Rate Calc 91 >90 mL/min BUN/Creatinine Ratio 19.7 10.0-20.0 Serum Glucose 94 74-106 mg/dL Calcium Level 9.5 8.7-10.4 mg/dL Magnesium Level 1.7 1.6-2.6 mg/dL Total Bilirubin 0.3 0.2-1.0 mg/dL Aspartate Amino Transferase (AST) 32 13-40 U/L Alanine Aminotransferase (ALT) 51 H 7-40 U/L Alkaline Phosphatase 95 46-116 U/L B-Type Natriuretic Peptide 10.63 0-100 pg/mL Total Protein 6.9 5.7-8.2 g/dL Albumin 4.7 3.2-4.8 g/dL POC Glucose 102 70-106 mg/dl Current Medications Medications (Trade) Dose Ordered Sig/Dominique Route Start Time Stop Time Status Last Admin Aspirin (Ecotrin Enteric Coated Tablet) 325 mg ONCE ONCE PO 09/28/24 13:15 09/28/24 13:16 DC 09/28/24 13:27 Nitroglycerin (Ntrostat Sublingual) 0.4 mg ONCE ONCE SL 09/28/24 13:15 09/28/24 13:16 DC 09/28/24 14:02 [place] [id number] Ph: [phone] DIAGNOSTIC IMAGING Diagnostic Imaging Report : [id number] Signed PATIENT: VIRGINIA PARKS ACCT: [id number] UNIT: [id number] : 1955 LOC: ER ROOM / BED: / AGE / SEX: 69 / F ADM STATUS: REG ER SERVICE [id number] ORDERING PHYSICIAN: AAN BARCENAS DO PROCEDURE(s): CXR1 - CHEST XRAY 1 VIEW REASON: CP ORDER NUMBER(s): [id number], ACCESSION NUMBER(s): [id number] EXAM: XY CHEST XRAY 1 VIEW TECHNIQUE: Single frontal chest radiograph CLINICAL HISTORY: CP COMPARISON: XY CHEST PORTABLE on DOS: 07/29/23 Findings/Impression: Frontal chest radiograph demonstrates no acute osseous or superficial soft tissue abnormalities. The trachea is midline. The cardiac silhouette and mediastinum are within normal limits. No pneumothorax, pleural effusions, or consolidations. ATED BY: BERNICE SHEA DO DICTATED DATE/TIME: 09/28/241326 SIGNED BY: BERNICE SHEA DO SIGNED DATE/TIME: 09/28/241326 CC: Time of 1ST Reevaluation: 13:17 Reevaluation 1ST: Unchanged Patient Education/Counseling: Diagnosis, Treatment Family Education/Counseling: Other Comments Patient presented with the above HPI.---cardiac---workup was initiated. patient was found with the above mentioned diagnosis. the following medications were ordered: please refer to order lists of meds and tests obtained by myself Dr. Barcenas. Patient ED course and VS have been stabilized. Patient has been reassessed in the ED and remained in a stable condition. Pertinent incidental findings were discussed with the patient and/or family. Patient/family voices understanding and is agreeable with plan. Patient has been observed in the ED adequate length of time to insure improvement/stability. Escalation of care considered: Consideration of escalation to observation or admission Patient was ADMITTED to the medicine team for further evaluation and treatment of their presentation. All the reports of any imaging studies that were ordered by myself were reviewed by myself. Departure 1 Departure Time of Disposition: 13:17 Impression: Primary Impression: Chest pain Disposition: ADMITTED INPATIENT Admit to: Tele Condition: Guarded Discharged With: Self Critical Care Note Critical Care Time?: No Heart Score Heart Score: Heart Score Response (Comments) Value History Moderate Suspicious 1 EKG Normal 0 Age >65 2 Risk Factors >3 or Hx ASHD 2 Troponin Normal limit 0 Total 5 I personally scribed for ANA BARCENAS DO ([email or web address]) on 09/28/24 at 13:10. Electronically submitted by Zahraa Lopez ([employer]). I personally scribed for ANA BARCENAS DO ([email or web address]) on 09/28/24 at 13:27. Electronically submitted by Zahraa Lopez ([employer]). I personally scribed for ANA BARCENAS DO ([email or web address]) on 09/28/24 at 14:08. Electronically submitted by Zahraa [employer]). ANA BARCENAS DO Sep 28, 2024 13:10
[2024-09-28 13:15] LABS: Alanine Aminotransferase 51 U/L (7-40); Albumin 4.7 g/dL (3.2-4.8); Alkaline Phosphatase 95 U/L (46-116); Anion Gap 9 (5-15); Aspartate Aminotransferase 32 U/L (13-40); BUN/Creatinine Ratio 19.7 (10.0-20.0); Bilirubin, Total 0.3 mg/dL (0.2-1.0); Blood Urea Nitrogen 14 mg/dL (9-23); Calcium 9.5 mg/dL (8.7-10.4); Carbon Dioxide 31 mmol/L (20-31); Chloride 103 mmol/L (98-107); Glucose 94 mg/dL (74-106); Potassium 3.9 mmol/L (3.5-5.1); Sodium 143 mmol/L (136-145); Total Protein 6.9 g/dL (5.7-8.2)
[2024-09-28] MEDS: ASPirin-EC 325mg tab PO ONE (13:27)
--- NOTE | 2024-09-28 13:29 | DVH ---
EXAM: XY CHEST XRAY 1 VIEW TECHNIQUE: Single frontal chest radiograph CLINICAL HISTORY: CP COMPARISON: XY CHEST PORTABLE on DOS: 07/29/23 Findings/Impression: Frontal chest radiograph demonstrates no acute osseous or superficial soft tissue abnormalities. The trachea is midline. The cardiac silhouette and mediastinum are within normal limits. No pneumothorax, pleural effusions, or consolidations.
[2024-09-28] MEDS: NITROGLYCERIN 0.4 MG SL TAB SL ONE (14:02)
--- NOTE | 2024-09-28 14:13 | DVHHP2 ---
History of Present Illness Reason for Visit: Chest pain History of Present Illness 69-year-old female past medical history CHF COPD diabetes asthma is hypertension migraine headaches surgical history hysterectomy tonsillectomy chief complaint patient states she has been complain of the left chest wall pain has been radiating to her left arm she states his pain has been going on for three days. Pain has been off and on she states the pain is worse with movement. Patient states he had the same problem last year in October had a cardiac workup she has follow up with her furnace converter in [facility]. She is due to have an appointment next week. Patient denies any tearing sensation in her chest. S he does state she has a little bit of nausea but no vomiting in little bit of dizziness no cough no fever. Nothing makes the pain better she states she does take a pain pill in his not helping her. Evaluating patient's chart patient was found to have a echocardiogram in November of 2023 EF was 60% and also stress test last year in November 2023 it was treadmill in his showed no ischemia. When evaluating patient's labs and imaging from ER nitro was given aspirin CBC was unremarkable troponin was unremarkable chest x-ray was negative BNP was negative. With these findings we will admit we will reorder echocardiogram in rounding team can consider of furnace converter as needed Past Medical History CHF COPD diabetes asthma hypertension migraine headaches Past Surgical History Hysterectomy and tonsillectomy Family History Reviewed, non-contributory to the management of this case. Past Social History The patient lives at home, denies smoking, alcohol or illicit drugs abuse. Review of Systems Constitutional: No: Fever, Chills, Sweats, Weakness, Malaise, Other Eyes: No: Pain, Vision change, Conjunctivae inflammation, Eyelid inflammation, Other, Redness ENT: No: Ear pain, Ear discharge, Nose pain, Nose discharge, Nose congestion, Mouth pain, Mouth swelling, Throat pain, Throat swelling, Other Respiratory: No: Cough, Dry, Shortness of breath, SOB with excertion, Wheezing, Hemoptysis, Pleuritic Pain, Sputum, Wheezing, Other Cardiovascular: Chest Pain; No: Palpitations, Orthopnea, Paroxysmal Noc. Dyspnea, Edema, Lt Headedness, Other Gastrointestinal: No: Nausea, Vomiting, Abdominal Pain, Diarrhea, Constipation, Melena, Hematochezia, Other Genitourinary: No Dysuria, No Frequency, No Incontinence, No Hematuria, No Retention, No Other Musculoskeletal: No: other, neck pain, shoulder pain, arm pain, back pain, hand pain, leg pain, foot pain Skin: No: Rash, Lesions, Jaundice, Bruising, Other Neurological: No: Weakness, Numbness, Incoordination, Change in speech, Confusion, Seizures, Other Allergies: Coded Allergies: NO KNOWN ALLERGIES (Unverified , 12/11/18) Exam Vital Signs Vital Signs Date Time Temp Pulse Resp B/P (MAP) Pulse Ox O2 Delivery O2 Flow Rate FiO2 09/28/24 13:33 86 09/28/24 13:01 18 95 Room Air* 0 21 09/28/24 12:58 98.4 112/86 (95) 98.4 General Appearance: Alert, Oriented X3, Cooperative, No acute distress HEENT: Atraumatic, PERRLA, EOMI, Mucous membr. moist/pink Respiratory: Clear to auscultation, Normal air movement Cardiovascular: Regular rate, Normal S1, Normal S2, No murmurs Abdominal: Normal bowel sounds, Soft, No tenderness, No hepatospenomegaly, No masses Extremities: No clubbing, No cyanosis, No edema, Normal pulses, No tenderness/swelling Skin: No rashes, No breakdown Neuro: Normal speech, Strength at 5/5 X4 ext, Normal tone, Sensation intact, Other (Neuro nonfocal) Psych/Mental Status: Mental status NL, Mood NL Labs/Xrays Chest x-ray unremarkable I reviewed labs, imaging CT scan abdomen pelvis, EKG and all diagnostic studies on this patient from ED records and the medical chart Labs Test 09/28/24 13:37 09/28/24 12:42 09/28/24 12:41 Range/Units White Blood Count 9.9 4.4-10.8 10^3/uL Red Blood Count 5.12 4.0-5.20 10^6/uL Hemoglobin 14.8 12.2-16.2 g/dL Hematocrit 44.9 36.0-46.0 % Mean Corpuscular Volume 87.7 80.0-100.0 fL Mean Corpuscular Hemoglobin 28.9 28.0-32.0 pg Mean Corpuscular Hemoglobin Concent 33.0 32.0-36.0 g/dL Red Cell Distribution Width 15.2 H 11.8-14.3 % Platelet Count 234 140-450 10^3/uL Mean Platelet Volume 8.2 6.9-10.8 fL Neutrophils (%) (Auto) 64.9 37.0-80.0 % Lymphocytes (%) (Auto) 24.7 10.0-50.0 % Monocytes (%) (Auto) 8.9 0.0-12.0 % Eosinophils (%) (Auto) 1.0 0.0-7.0 % Basophils (%) (Auto) 0.5 0.0-2.0 % Neutrophils # (Auto) 6.5 1.6-8.6 10 ^3/uL Lymphocytes # (Auto) 2.5 0.4-5.4 10 ^3/uL Monocytes # (Auto) 0.9 0-1.3 10 ^3/uL Eosinophils # (Auto) 0.1 0-0.8 10 ^3/uL Basophils # (Auto) 0.1 0-0.2 10 ^3/uL Nucleated Red Blood Cells 0.1 % Sodium Level 143 136-145 mmol/L Potassium Level 3.9 3.5-5.1 mmol/L Chloride Level 103 98-107 mmol/L Carbon Dioxide Level 31 20-31 mmol/L Anion Gap 9 5-15 Blood Urea Nitrogen 14 9-23 mg/dL Creatinine 0.71 0.550-1.02 mg/dL Glomerular Filtration Rate Calc 91 >90 mL/min BUN/Creatinine Ratio 19.7 10.0-20.0 Serum Glucose 94 74-106 mg/dL Calcium Level 9.5 8.7-10.4 mg/dL Total Bilirubin 0.3 0.2-1.0 mg/dL Aspartate Amino Transferase (AST) 32 13-40 U/L Alanine Aminotransferase (ALT) 51 H 7-40 U/L Alkaline Phosphatase 95 46-116 U/L B-Type Natriuretic Peptide 10.63 0-100 pg/mL Total Protein 6.9 5.7-8.2 g/dL Albumin 4.7 3.2-4.8 g/dL POC Glucose 102 70-106 mg/dl Assessment/Plan Assessment/Plan acute chest pain likely atypical in nature trop negative ekg no stemi cxr normal pt had stress tests treadmill in 11/2023 negative for ischemia echo was completed 11/2023 ef 60%, will repeat study ordered ddimer fu results if abnormal echo rounding team can consider cards consult ordered Aspirin, atorvastatin, ordered nitro as needed for chest pain Oxygen as needed ordered Lipid panel in am Lifestyle modification ordered morphine as needed for pain will trend trop chronic problems chf no exacerbations copd no hypoxia duoneb prn dm asthma htn fen/ppx diet hl scd heparin fore now plan admit to tele cardiac workup Plan discussed with: Patient Date of Service: Sep 28, 2024 Billing Provider: BAILEE DEAN DNP Common Visit Codes: [id number] INP/OBS CARE (HIGH) BAILEE DEAN DNP Sep 28, 2024 14:13
[2024-09-28] MEDS ORDERED: NITROGLYCERIN 0.4 MG SL TAB SL PRN ×2 (15:00)
[2024-09-28] MEDS ORDERED: MORPHINE SULFATE 4 MG/ML SYR/VIAL IV PRN (15:00)
[2024-09-28] MEDS ORDERED: ONDANSETRON HCL 4 MG/2 ML VIAL IV PRN (15:00)
[2024-09-28 15:06] VITALS: BP 117/64; PULSE 82; RESP 16; TEMP 97.9; O2SAT 95
[2024-09-28] MEDS ORDERED: ALBUTEROL SULF 2.5 MG/0.5ML(0.5%) NEB SOLN NEB PRN (18:00)
[2024-09-28] MEDS ORDERED: ALBUTEROL SULF HFA 90MCG INH 200DOSE IN SCH (18:00)
[2024-09-28] MEDS: HYDROcodone-ACET 10/325MG TAB PO SCH (18:14)
[2024-09-28] MEDS: FUROSEMIDE 20 MG TAB PO SCH (18:14)
[2024-09-28 18:20] VITALS: BP 125/50; PULSE 83; RESP 20; TEMP 98.1; O2SAT 96
[2024-09-28 18:21] VITALS: PULSE 85; RESP 20; O2SAT 95
--- NOTE | 2024-09-28 18:53 | ECG ---
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
--- NOTE | 2024-09-28 18:53 | ECG ---
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
[2024-09-28] MEDS ORDERED: DICL1.3P TOP (19:17)
[2024-09-28] MEDS ORDERED: HYDR-4798 PO (19:17)
[2024-09-28] MEDS ORDERED: FLUT1AER3 IN (19:17)
[2024-09-28] MEDS ORDERED: SEMA2INJ3 SC (19:17)
[2024-09-28] MEDS ORDERED: DONE5TAB80 PO (19:17)
[2024-09-28] MEDS ORDERED: FAMO-12 PO (19:17)
[2024-09-28] MEDS ORDERED: CHLO25TA2 PO (19:17)
[2024-09-28] MEDS ORDERED: SACU1TAB PO (19:17)
[2024-09-28 19:50] VITALS: PULSE 81; PULSE 85
[2024-09-28 21:00] VITALS: BP 112/71; PULSE 85; RESP 19; TEMP 97.8; O2SAT 95
[2024-09-28] MEDS: CYCLOBENZAPRINE HCL 10 MG TAB PO SCH (21:10)
[2024-09-28] MEDS: FAMOTIDINE 20 MG TAB PO SCH (21:10)
[2024-09-28] MEDS: traZODone HCL 50 MG TAB PO SCH (21:10)
[2024-09-28] MEDS: ATORVASTATIN 20 MG TAB PO SCH (21:10)
[2024-09-28] MEDS: DOCUSATE SOD 100 MG CAP PO SCH (21:10)
[2024-09-28] MEDS ORDERED: ATORVASTATIN 20 MG TAB PO SCH (22:00)
--- NOTE | 2024-09-29 01:43 | DVHSR ---
APPROVED REPORT EXAM: Two-dimensional and M-mode echocardiogram with Doppler and color Doppler. Blood Pressure: 117/64 mmHg INDICATION Chest Pain RISK FACTORS Obesity: Height: 5'1, Weight: 194 DIMENSIONS LVDd3.7 (3.8-5.7cm)LA (2D)3.5 (1.9-4.0cm)Aortic Root2.9 (2.0-3.7cm) LVDs2.6 (2.5-4.0cm)LA (MM) (1.9-4.0cm)Aortic Cusp Exc1.6 (1.5-2.0cm) EF (%) 55.0 (55-70%)Rt. Atrium3.7 (1.9-4.0cm)Asc. Aorta3.2 cm IVSd1.0 (0.7-1.1cm)RV (D)3.3 (1.8-2.4cm) PWd0.7 (0.7-1.1cm) Mitral Valve MitralMitral Stenosis E wave0.60m/sMV Mean GR.mmHg A wave0.87m/sMV Peak GR.mmHg E/A ratio0.72D MVAcm2 DECEL [id number] 1/2 Timems Aortic Valve Aortic ValveAortic Stenosis V11.15m/Husam Mean GR.4mmHg V21.39m/Husam Peak GR.8mmHg LVOT Diameter1.9 (1.8-2.4cm)Doppler AVA2.34cm2 Pulmonic Valve V20.77m/s Tricuspid Valve TR Velocity2.09m/s [id number] Other Information Quality : Technically LimitedRhythm : Technically limited study due to patient position.body habitus. Conclusion MILD LVH AND MILD LV DIASTOLIC DYSFUNCTION LV EJECTION FRACTION IS 65% NORMAL VALVES NO EFFUSION
[2024-09-29 02:58] LABS: Urine Bacteria None Seen /hpf (None Seen)
[2024-09-29 03:23] LABS: Urine Blood Negative /uL (Negative); Urine Clarity Clear (Clear); Urine Color Yellow (Yellow); Urine Mucus FEW (None Seen); Urine Protein, UAD Negative (Negative); Urine Specific Gravity 1.025 (1.001-1.035); Urine Squamous Epithelial Cell FEW /hpf (<5); Urine Urobilinogen Normal (Negative); Urine WBC 6 /HPF (0-5)
[2024-09-29 05:00] VITALS: BP 107/59; PULSE 73; RESP 18; TEMP 98; O2SAT 95
[2024-09-29 08:00] VITALS: PULSE 76
[2024-09-29 08:18] LABS: Basophils # (auto) 0 10 ^3/uL (0-0.2); Basophils % (auto) 0.5 % (0.0-2.0); Eosinophils # (auto) 0.2 10 ^3/uL (0-0.8); Eosinophils % (auto) 2.3 % (0.0-7.0); Hematocrit 41.4 % (36.0-46.0); Lymphocytes # (auto) 1.9 10 ^3/uL (0.4-5.4); Lymphocytes % (auto) 22.7 % (10.0-50.0); Mean Corpuscular Hemoglobin 29.3 pg (28.0-32.0); Mean Corpuscular Hgb Conc. 33.7 g/dL (32.0-36.0); Mean Corpuscular Volume 86.9 fL (80.0-100.0); Monocytes # (auto) 0.7 10 ^3/uL (0-1.3); Monocytes % (auto) 8.5 % (0.0-12.0); Neutrophils # (auto) 5.6 10 ^3/uL (1.6-8.6); Nucleated Red Blood Cells % 0.2 %; Platelet Count (auto) 233 10^3/uL (140-450); Red Blood Cells 4.77 10^6/uL (4.0-5.20); Red Cell Distribution Width 15.2 % (11.8-14.3); White Blood Cell 8.5 10^3/uL (4.4-10.8)
[2024-09-29 08:39] LABS: Alanine Aminotransferase 65 U/L (7-40); Albumin 4.6 g/dL (3.2-4.8); Alkaline Phosphatase 91 U/L (46-116); Anion Gap 8 (5-15); Aspartate Aminotransferase 33 U/L (13-40); BUN/Creatinine Ratio 16.9 (10.0-20.0); Bilirubin, Total 0.4 mg/dL (0.2-1.0); Blood Urea Nitrogen 12 mg/dL (9-23); Calcium 9.3 mg/dL (8.7-10.4); Carbon Dioxide 33 mmol/L (20-31); Chloride 99 mmol/L (98-107); Glucose 100 mg/dL (74-106); Potassium 3.8 mmol/L (3.5-5.1); Sodium 140 mmol/L (136-145); Total Protein 7.1 g/dL (5.7-8.2)
[2024-09-29 08:44] VITALS: BP 124/72; PULSE 65; RESP 16; TEMP 97.5; O2SAT 97
[2024-09-29] MEDS: EMPAGLIFLOZIN 10 MG TAB PO SCH (09:43)
[2024-09-29] MEDS: ASPirin 81 mg TAB PO SCH (09:43)
[2024-09-29] MEDS: SACUBITRIL-VALSARTAN 24mg/26mg TAB PO SCH (09:44)
[2024-09-29] MEDS: MONTELUKAST SODIUM 10 MG TAB PO SCH (09:44)
[2024-09-29 09:50] VITALS: O2SAT 97
[2024-09-29] MEDS ORDERED: DOCUSATE SOD 100 MG CAP PO SCH (10:00)
[2024-09-29 12:34] VITALS: BP 107/65; PULSE 80; RESP 16; TEMP 97.8; O2SAT 95
--- NOTE | 2024-09-29 15:35 | DVHDS2 ---
Discharge Summary Date of Admission Sep 28, 2024 at 14:50 Date of Discharge: Sep 29, 2024 Labs/Diagnostic Data: Laboratory Results Test 09/29/24 08:03 09/29/24 00:40 09/28/24 16:35 09/28/24 12:42 White Blood Count 8.5 10^3/uL (4.4-10.8) Red Blood Count 4.77 10^6/uL (4.0-5.20) Hemoglobin 14.0 g/dL (12.2-16.2) Hematocrit 41.4 % (36.0-46.0) Mean Corpuscular Volume 86.9 fL (80.0-100.0) Mean Corpuscular Hemoglobin 29.3 pg (28.0-32.0) Mean Corpuscular Hemoglobin Concent 33.7 g/dL (32.0-36.0) Red Cell Distribution Width 15.2 % (11.8-14.3) Platelet Count 233 10^3/uL (140-450) Mean Platelet Volume 8.4 fL (6.9-10.8) Neutrophils (%) (Auto) 66.0 % (37.0-80.0) Lymphocytes (%) (Auto) 22.7 % (10.0-50.0) Monocytes (%) (Auto) 8.5 % (0.0-12.0) Eosinophils (%) (Auto) 2.3 % (0.0-7.0) Basophils (%) (Auto) 0.5 % (0.0-2.0) Neutrophils # (Auto) 5.6 10 ^3/uL (1.6-8.6) Lymphocytes # (Auto) 1.9 10 ^3/uL (0.4-5.4) Monocytes # (Auto) 0.7 10 ^3/uL (0-1.3) Eosinophils # (Auto) 0.2 10 ^3/uL (0-0.8) Basophils # (Auto) 0 10 ^3/uL (0-0.2) Nucleated Red Blood Cells 0.2 % Sodium Level 140 mmol/L (136-145) Potassium Level 3.8 mmol/L (3.5-5.1) Chloride Level 99 mmol/L (98-107) Carbon Dioxide Level 33 mmol/L (20-31) Anion Gap 8 (5-15) Blood Urea Nitrogen 12 mg/dL (9-23) Creatinine 0.71 mg/dL (0.550-1.02) Glomerular Filtration Rate Calc 91 mL/min (>90) BUN/Creatinine Ratio 16.9 (10.0-20.0) Serum Glucose 100 mg/dL (74-106) Calcium Level 9.3 mg/dL (8.7-10.4) Total Bilirubin 0.4 mg/dL (0.2-1.0) Aspartate Amino Transferase (AST) 33 U/L (13-40) Alanine Aminotransferase (ALT) 65 U/L (7-40) Alkaline Phosphatase 91 U/L (46-116) Total Protein 7.1 g/dL (5.7-8.2) Albumin 4.6 g/dL (3.2-4.8) Urine Color Yellow (Yellow) Urine Clarity Clear (Clear) Urine pH 6.0 (5.0-9.0) Urine Specific [place] 1.025 (1.001-1.035) Urine Protein Negative (Negative) Urine Ketones Negative (Negative) Urine Blood Negative /uL (Negative) Urine Nitrite Negative (Negative) Urine Bilirubin Negative (Negative) Urine Urobilinogen Normal mg/dL (Negative) Urine Leukocyte Esterase 2+ /uL (Negative) Urine RBC 1 /hpf (0 - 4) Urine Microscopic WBC 6 /HPF (0-5) Urine Squamous Epithelial Cells Few /hpf (<5) Urine Bacteria None seen /hpf (None Seen) Urine Mucus Few (None Seen) Urine Glucose Normal mg/dL (Normal) Troponin I High Sensitivity < 3 ng/L (</=34) Magnesium Level 1.7 mg/dL (1.6-2.6) B-Type Natriuretic Peptide 10.63 pg/mL (0-100) Test 09/28/24 12:41 POC Glucose 102 mg/dl (70-106) Other Laboratory Tests 09/29/24 08:03 Brief Hx & Hospital Course: 69-year-old female past medical history CHF COPD diabetes asthma is hypertension migraine headaches surgical history hysterectomy tonsillectomy chief complaint patient states she has been complain of the left chest wall pain has been radiating to her left arm she states his pain has been going on for three days. Pain has been off and on she states the pain is worse with movement. Patient has sleep apnea and is already on CPAP and her weight has been decreasing from 230s to 190s. On admit labs are mostly stable with bicarb being elevated but stable bicarb is 33. She was mild elevation of ALT. Urine is concentrated with specific gravity 1.025, leukocytosis positive, WBCs 6, bacteria none. No dysuria. CXR is unremarkable. EKG without any ST changes. Troponins negative. 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 On 09/29 patient wants to leave but needs to be further monitored on telemetry given her past medical history and risk factors. Patient informed of risks including with AMA patient patient agrees to risks and signed AMA form and lives hospital premises. Condition at Discharge: Undetermined Final Diagnosis/Problems List Chest pain, rule out SC ACS ruled out CHANO on CPAP GERD possible CHF, HFpEF, COPD Diabetes Asthma Hypertension Discharge Disposition: AMA Discharge Statement: "Patient was advised to return to the ER or call 911 if any headaches, dizziness, shortness of breath, chest pain, abdominal pain, bleeding, fevers, or worsening of medical condition. Patient was counseled about treatment plan, medications, possible side effects, patientverbalized understanding. All questions were answered to the best of my ability. This discharge took greater then 30 minutes in planning, reviewing documentation, counseling the patient, and discussing with other team members." ASSESSMENT ASSESSMENT Assessment Date of Service: Sep 29, 2024 Billing Provider: GITA MAYO MD Common Visit Codes: NOT BILLABLE GITA MAYO MD Sep 29, 2024 15:35
--- NOTE | 2024-09-30 11:09 | ECG ---
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
== END 2024-09-29 15:01 | disposition left against medical advice (07) | DRG 313 ==
LOC: ER 12:34 → OVERFLOW 14:50 → TELE-WESTW 18:00
PROVIDERS: ADMIT Nurse Practitioner Family; ATTEND Nurse Practitioner Family
DX: R07.89 Other chest pain (principal); I50.32 Chronic diastolic (congestive) heart failure; K21.9 Gastro-esophageal reflux disease without esophagitis; G47.33 Obstructive sleep apnea (adult) (pediatric); Z53.29 Procedure and treatment not carried out because of patient's decision for other reasons; J44.89 Other specified chronic obstructive pulmonary disease; I11.0 Hypertensive heart disease with heart failure; E11.9 Type 2 diabetes mellitus without complications; D72.829 Elevated white blood cell count, unspecified; Z79.899 Other long term (current) drug therapy; Z79.84 Long term (current) use of oral hypoglycemic drugs; Z90.710 Acquired absence of both cervix and uterus; J45.909 Unspecified asthma, uncomplicated
CPT/HCPCS: 36415; 71045; 80053; 81001; 82962; 83735; 83880; 84484; 85025; 87081; 93005; 93306; G0378